=== PATIENT | male | born 1990 | race Caucasian/White ===

== ENCOUNTER 2024-04-22 12:26 | Outpatient (REF) | payer OTHER, SELFPAY ==
[2024-04-23 08:54] LABS: Influenza A PCR NEGATIVE (Negative); Influenza B PCR NEGATIVE (Negative); Resp Syncy Virus RNA Qual PCR NEGATIVE (Negative); SARS COV2 PCR INHOUSE NEGATIVE (Negative)
== END 2024-04-22 12:27 | disposition home or self-care (01) ==
LOC: HO.LNP 12:26
PROVIDERS: Visit Provider Nurse Practitioner Family
DX: R50.9 Fever, unspecified (principal); R05.9 Cough, unspecified; R09.89 Other specified symptoms and signs involving the circulatory and respiratory systems; R68.89 Other general symptoms and signs; J32.9 Chronic sinusitis, unspecified
CPT/HCPCS: 0241U

== ENCOUNTER 2024-04-22 12:26 | Outpatient (AMB) | payer OTHER, SELFPAY ==
--- NOTE | 2024-04-22 13:19 | MHC.OFFWIV ---
Intake Vital Signs 04/22/24 13:20 Height 5 ft 9 in Weight 179 lb BMI 26.4 BP 116/76 Blood Pressure Location Lt brachial Position Sitting Pulse 60 Pulse Source Pulse Oximeter Temp 97.8 F Temp Source Oral Pulse Oximetry (%) 98 Intake Visit Reasons: est/sick/fever/cough Allergies No Known Allergies Allergy (Verified 04/22/24 13:31) Medication List - Last Reconciled 04/22/24 by DARIO Davis No Known Home Meds Do you need a note to return to daycare/school/sports/work: Yes HPI HPI Comments History of Present Illness Details [phone] [facility] History of Present Illness The patient is a 33-year-old male presenting with symptoms consistent with influenza, possibly complicated by a bacterial sinus infection. The patient reports the onset of symptoms approximately two weeks ago. Initial symptoms included body aches, fever, and a cough, persisting and localizing to the upper chest and throat. During this period, the patient observed yellow mucus with occasional bloody nasal discharge, accompanying fever, headaches, and persistent nasal congestion. The patient reports a brief period of improvement for about two or three days; however, symptoms returned. Gyqi-qzb-jxvwlys medications such as DayQuil, NyQuil, and Tylenol have provided partial symptom relief. The patient noted that Afrin nasal spray was counterproductive, causing difficulty breathing. There is no record of the patient receiving a flu shot this season. The patient's girlfriend recently returned from a trip, which coincided with the onset of symptoms. The severity of symptoms has been interfering with normal activities, prompting the visit to assess if medical intervention is necessary. 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 - Engages in regular physical activity at the gym. - Lives in [place]. Current residence is presumed stable. Physical Exam General: Awake, alert. No apparent distress Eyes: Sclera and conjunctiva clear bilaterally Nose: Bloody drainage and dark yellow mucus present bilat, no sinus tenderness w/ palp Ears: TM intact, mild congestion L>R Throat: Moist mucosa membrane, pharynx within normal limits, no exudate uvula midline Cardiovascular: Regular rate and rhythm Respiratory: Clear to auscultation bilaterally Results - Flu, COVID-19, and RSV test pending. Discussion Notes I discussed with the patient the symptoms, indicating a possible bacterial sinus infection given the duration of illness and the presence of bloody nasal discharge. I recommended a nasal swab to rule out influenza, COVID-19, and RSV. I explained the utility of antiviral medications, such as Tamiflu, intended to minimize illness duration and transmissibility should influenza be confirmed. However, should bacterial infection be confirmed or strongly suspected, I suggested that an antibiotic, likely amoxicillin, might be warranted given the persistent nature of symptoms and presence of bloody mucus. I emphasized the importance of flu prevention this season, especially considering the high prevalence of influenza encounters reported across healthcare settings. I instructed the patient on the potential adverse effects and limited utility of nasal decongestants like Afrin. Finally, I advised the patient regarding the availability of the results by day's end, and I will initiate appropriate treatment thereafter. Patient Instructions - Expect a call with results by the end of the day. - Avoid use of Afrin nasal spray due to adverse reactions. - Continue current OTC medications for symptom relief as needed. - Contact the clinic if symptoms worsen or in case of new developments. - Update contact number at the assistant front desk manager for ongoing communication. Plan The current primary concerns are evaluating for the presence of an influenza infection, possible sinusitis, and addressing nasal symptoms suggestive of bacterial involvement. An accurate diagnosis is pivotal, hence the necessity for nasal swabbing to rule out viral infections influenza, COVID-19, and RSV). Management will depend on swab results: - Should the swab return positive for influenza, commencement of Tamiflu or Zofluza will be indicated. - If a bacterial sinus infection is strongly suspected due to persisting symptoms and bloody nasal mucus, an antibiotic such as amoxicillin is a probable choice. - Encourage hydration and rest, noting the patient's occupational risk at a [employer] and advising precautionary measures due to ongoing viral circulation. - Monitoring and future prophylaxis can involve vaccination advisement against influenza, given current non-vaccinated status. Additionally, recommending avoidance of problematic nasal decongestants aligns with managing symptomatology and potential rebound complications. Patient was informed and verbally consented to the use of an ambient scribe for clinic note documentation during this visit. Total time spent caring for the patient today was 30 minutes. This includes time spent before the visit reviewing the chart, time spent during the visit, and time spent after the visit on documentation, reviewing laboratory results, diagnostic imaging, medications, performing a medically necessary evaluation, counseling on diagnoses, care coordination, ordering appropriate tests, ordering appropriate medications, review of tests performed by other providers, reporting test results with the patient, communication with other healthcare providers. Physical Exam Vital Signs: Last Vital Signs Temp 97.8 F 04/22/24 13:20 Pulse 60 04/22/24 13:20 BP 116/76 04/22/24 13:20 Pulse Ox 98 04/22/24 13:20 BMI result Body Mass Index 26.4 Assessment & Plan Assessment & Plan (1) Flu-like symptoms: Code(s): R68.89 - Other general symptoms and signs (2) Sinusitis: Code(s): J32.9 - Chronic sinusitis, unspecified Plan . Orders: Orders SARS-CoV2/FLU/RSV Today R09.89 - Other specified symptoms and signs involving the circulatory and respiratory systems, R68.89 - Other general symptoms and signs Coding Level of Care Code Est Pt Level 4 (73296) Diagnoses Flu-like symptoms R68.89 Sinusitis J32.9
[2024-04-22 13:20] VITALS: BP 116/76; PULSE 60; TEMP 36.6; O2SAT 98; BMI 26.4
== END 2024-04-22 13:43 | disposition home or self-care (01) ==
LOC: HO.HMCWIW 12:26
PROVIDERS: Visit Provider Nurse Practitioner Family
DX: R68.89 Other general symptoms and signs (principal); J32.9 Chronic sinusitis, unspecified